=== PATIENT | female | born 1985 | race Caucasian/White ===

== ENCOUNTER 2016-10-26 11:09 | Emergency (ER) | payer MEDICAID ==
[~2016-10-26] VITALS: Ht 157.5 cm; Wt 90.8 kg
[2016-10-26 12:42] LABS: BASOPHIL % 0.5 % (0-2); PLATELET COUNT 294 x10^3mcL (130-400)
[2016-10-26 12:44] LABS: RED CELL DISTRIBUTION WIDTH 19.5 % (11.5-14.5)
[2016-10-26 13:57] VITALS: BP 101/67
== END 2016-10-26 14:42 | disposition home or self-care (01) ==
LOC: ED 11:09
PROVIDERS: Emergency Medicine
DX: O72.2 Delayed and secondary postpartum hemorrhage (principal)

== ENCOUNTER 2017-09-26 09:11 | Emergency (ER) | payer MEDICAID ==
[~2017-09-26] VITALS: Ht 157.5 cm; Wt 90.7 kg
[2017-09-26 09:20] VITALS: Ht 157.5 cm; Wt 90.7 kg
[2017-09-26 11:00] LABS: BASOPHIL % 0.7 % (0-2); PLATELET COUNT 393 x10^3mcL (130-400)
[2017-09-26 11:25] LABS: RED CELL DISTRIBUTION WIDTH 17.6 % (11.5-14.5)
[2017-09-26 11:27] LABS: CALCIUM 8.8 mg/dL (8.5-10.1); CARBON DIOXIDE 29.8 mmol/L (21-32); CHLORIDE SERUM 103 mmol/L (98-107); CREATININE SERUM 0.6 mg/dL (0.6-1.0); GFR1 > 60 mL/min; GLUCOSE SERUM 93 mg/dL (74-106); POTASSIUM SERUM 4.1 mmol/L (3.5-5.1); SODIUM SERUM 137 mmol/L (136-145)
[2017-09-26 11:31] LABS: ALKALINE PHOSPHATASE 85 U/L (46-116); ALT/SGPT 24 U/L (14-59); AST/SGOT 24 U/L (15-37); BILIRUBIN TOTAL 0.2 mg/dL (0.20-1.00); TOTAL PROTEIN, SERUM 7.8 g/dL (6.4-8.2)
[2017-09-26 11:32] LABS: ALBUMIN 3.3 g/dL (3.4-5.0)
[2017-09-26 13:43] VITALS: BP 103/59
== END 2017-09-26 13:43 | disposition home or self-care (01) ==
LOC: ED 09:11
PROVIDERS: Emergency Medicine
DX: R10.31 Right lower quadrant pain (principal)
CPT/HCPCS: J1885; J7030

== ENCOUNTER 2019-11-03 18:16 | Emergency (ER) | payer MEDICAID ==
[~2019-11-03] VITALS: Ht 157.5 cm; Wt 99.8 kg
[2019-11-03 18:41] VITALS: BP 126/75; Ht 157.5 cm; Wt 99.8 kg
== END 2019-11-03 20:32 | disposition home or self-care (01) ==
LOC: ED 18:16
DX: M79.671 Pain in right foot (principal); R22.41 Localized swelling, mass and lump, right lower limb; R10.9 Unspecified abdominal pain; Z98.890 Other specified postprocedural states
CPT/HCPCS: Q0092